=== PATIENT | female | born 1955 | race Caucasian/White ===

== ENCOUNTER → 2020-07-12 | Outpatient (CLI) | payer MEDICARE, OTHER | LOC: RAD 14:08 | DX: G45.3 Amaurosis fugax (principal) ==

== ENCOUNTER → 2020-07-25 | Outpatient (CLI) | payer MEDICARE, OTHER | LOC: RAD 10:20 | DX: R09.89 Other specified symptoms and signs involving the circulatory and respiratory systems (principal); G45.3 Amaurosis fugax ==